=== PATIENT | male | born 2000 | race African-American/Black ===

== ENCOUNTER 2024-09-22 13:07 | Emergency (ER) | payer BC, OTHER, SELFPAY ==
[2024-09-22] VITALS (8 sets, daily range): BP systolic 127–148; BP diastolic 97–109; PULSE 71–80; RESP 14–18; TEMP 35.8–35.9; O2SAT 96–100; BMI 24.2
--- NOTE | 2024-09-22 14:08 | CT_ITS ---
EXAM: CT HEAD WITHOUT INTRAVENOUS CONTRAST CLINICAL INDICATION: head injury w/ loc TECHNIQUE: Multiple axial images were obtained of the head without intravenous contrast. This CT exam was performed using one or more of the following dose reduction techniques: automated exposure control, adjustment of the mA and/or kV according to patient size, and/or use of iterative reconstruction technique. RADIATION DOSE: CTDIvol = 44.99 mGy, DLP = 931.09 mGy-cm COMPARISON: No relevant prior studies available. FINDINGS: BRAIN AND EXTRA-AXIAL SPACES: Unremarkable. No intra- or extra-axial hemorrhage. No evidence of acute infarct. No intracranial mass or mass effect. There is preservation of the campos/white matter interface. Posterior fossa structures are unremarkable. Ventricles are appropriate for age. No hydrocephalus. Basal cisterns are patent. BONES/JOINTS: Unremarkable. No discrete lytic or blastic abnormalities. SINUSES: Unremarkable as visualized. Clear. MASTOID AIR CELLS: Unremarkable. Clear. ORBITS: Visualized globes, extraocular muscles, optic nerves and retrobulbar fat appear unremarkable. CT/Brain/Head without Contrast IMPRESSION: Negative head/brain CT without intravenous contrast. Electronically Signed: Andrzej Baxter MD at 14:51 EDT ,
--- NOTE | 2024-09-22 14:09 | EX.ED.GENINJ ---
HPI History of Present Illness Chief Complaint: Head Injury Detail of Chief Complaint: Head injury playing soccer. Nasal injury and small laceration. 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 He went up to do a header and another player from the other team one of the same time and that player's head hit him in the nose causing a nasal bridge laceration most likely a nasal fracture and a head injury with brief loss of conscious for about 3 seconds. No vomiting. No neck pain. No other complaints. Tetanus Immunization: 5-10 years Prior similar symptoms: No Recent Illness/Hospitalization: No PFSH PFSH Medical History no medical history no medical history Home Medications ?Medication ?Instructions ?Recorded ?Last Taken ?Type NK 09/22/24 Unknown History Allergy/AdvReac Type Severity Reaction Status Date / Time No Known Allergies Allergy Verified 09/22/24 13:08 Surgical History H/O knee surgery Social History Smoking Status: Never smoker ROS ROS ED ROS Narrative Denies recent illness. Constitutional Constitutional ED: Denies chills or fever(s) Eyes Eyes: Denies blurry vision ENT ENT ED: Denies ear pain Cardiovascular Cardiovascular: Denies chest pain Respiratory/Chest Respiratory/Chest: Denies cough or dyspnea Gastrointestinal Gastrointestinal: Denies abdominal pain Genitourinary Genitourinary ED: Denies dysuria or hematuria Musculoskeletal Musculoskeletal: Denies arthralgias or back pain Integumentary Denies abscess Neurologic Neurologic: Reports headache(s) Psychiatric Psychiatric: Denies anxiety Endocrine Endocrinology: Denies cold intolerance Hematologic/Lymphatic Hematologic/Lymphatic: Denies easy bleeding, easy bruising or lymphadenopathy Allergic/Immunologic Allergic/Immunologic ED: Denies mouth swelling, tongue swelling or urticaria EXAM Physical Exam Narrative Exam Narrative: 21-year-old male no acute distress sitting upright in bed. Vital signs stable afebrile. 2 other gentleman present to room. H EENT exam pupils round react light. HR motions are intact. He has a deformity of the bridge of his nose. Tender. Mild swelling. Minor laceration of bridge of his nose at does not need to be repaired. To be cleaned and dressed. Neck nontender. Full range of motion. Lungs clear. Heart regular rate and rhythm no murmur. Chest wall ribs nontender. Abdomen soft nontender. 5 out of 5 traveling storekeeper strength. Dorsi plantarflexion intact. Back nontender. Neurologically he is awake and alert. Answers questions following commands. GCS of 15. Const Vital Signs: 09/22/24 13:08 09/22/24 13:21 09/22/24 13:26 Temperature 96.4 F L Temperature Source Temporal Pulse Rate 71 79 Respiratory Rate 18 14 Respiratory Effort Normal Respiratory Depth Normal Respiratory Pattern Normal Blood Pressure 138/101 H 130/107 H Blood Pressure Mean 113 114 Pulse Ox 97 99 100 Oxygen Delivery Method Room Air Room Air 09/22/24 14:07 09/22/24 15:00 Temperature Temperature Source Pulse Rate 78 80 Respiratory Rate 16 16 Respiratory Effort Respiratory Depth Respiratory Pattern Blood Pressure 148/109 H 127/97 H Blood Pressure Mean 122 107 Pulse Ox 98 99 Oxygen Delivery Method Room Air Positive well nourished and well developed; Negative for obese, cachectic, contractures or unkempt General Appearance ED: well developed and NAD; Negative for unkempt, cachectic or contractures Nutritional Appearance: Negative for cachectic or obese HEENT HEENT Narrative: Nasal bridge fracture with deformity. Small laceration. trauma and tenderness; Negative for atraumatic Nose: septum abnormal Eyes PERRL and EOMs intact bilaterally Neck full ROM General: Negative for tenderness Chest Wall inspection of chest normal and palpation of chest normal Resp normal respiratory effort and clear to auscultation bilaterally Auscultation: Negative for rales, rhonchi or wheezes Cardio regular rhythm, S1 normal heart sound, S2 normal heart sound and no murmurs Jugular Venous Distention: Negative for other Rate: regular rate GI normal to inspection, nondistended, normoactive bowel sounds, non-tender, non-distended and no masses Inspection: Negative for abdominal distention Auscultation: normoactive bowel sounds Palpation: soft; Negative for tender, guarding or rebound tenderness present Back/Spine normal to inspection and no thoracic nor lumbar tenderness General Back: Negative for CVA tenderness Thoracic Spine / Upper Back: Negative for thoracic spinal tenderness Lumbar Spine / Lower Back: Negative for straight leg raise negative bilaterally Extremity normal to inspection and full ROM General Extremety ED: Negative for deformity, edema or tenderness General Extremity: Negative for deformity or edema Neuro oriented x3, CN's II-XII intact bilaterally, moves all extremities, no focal motor deficits and no sensory deficits noted [place] Coma Scale: document GCS findings Spontaneous Obeys Commands Oriented 15 Sensorium / Orientation: alert, oriented to person, oriented to place and oriented to time; Negative for orientation impaired or lethargic Motor Exam: strength 5/5 throughout Psych mental status grossly normal and thought process normal Appearance: Negative for unkempt Attitude: No agitated Mood & Affect: Negative for depressed, anxious or tearful Skin no rashes or lesions noted and No no wounds Skin Narrative: Minor nasal bridge laceration. Very superficial laceration left upper eyelid. Rashes: No rashes noted Trauma: abrasion PROC Procedures Lacerations Left nasal bridge laceration.: Length: 0.5 in Comment: Dermabond. And Steri-Strip. Left upper eyelid laceration repair:: Length: 0.5 in Comment: Dermabond. Steri-Strip. 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 Suspect nasal fracture. Head injury. CT will be obtained. Tylenol for pain. Clean and dress the wounds. Brief exam patient is doing well at 4 PM. Neurologic exam normal. I went over his CAT scan results with him and family. Glued the small laceration on the bridge of his nose and his left eyelid it was about 1 to 2 cm. Steri-Strip both. Good approximation and hemostasis was obtained. History & Record Review Discussion w/independent historian: Patient Radiography Diagnostic Testing: Clinical Impression(s) from Imaging Studies Brain CT 09/22/24 14:08 IMPRESSION: Negative head/brain CT without intravenous contrast. Electronically Signed: Andrzej Baxter MD at 14:51 EDT Reading Location ID and State: [facility] / [place] , Service support , Discharge Plan Triage Chief Complaint: Head Injury ED Provider: Rony Elias Dx/Rx/DC Orders Clinical Impression: Concussion, Closed fracture nasal bone, Eyelid laceration, Laceration of nose Instructions: ED Concussion, ED Facial Contusion, ED Nose Fracture, with X-Ray Prescriptions: No Action NK Primary Care Provider: Care Physician,No Primary Referrals: Gaetano Yost MD [Med Staff - Active Staff] - As Needed Care Physician,No Primary [Primary Care Provider] - Activity Restrictions/Additional Instructions: Ice to your nose and face to decrease pain and swelling. Motrin and Tylenol for pain. Let your broken nose heal. Ice it. If in several months you do not like the way it looks she can follow-up to have it reevaluated to see if you want to have any surgery done. Steri-Strips can come off your nose and left upper eyelid in week to 10 days. Print Language: [place]i Disposition Disposition: Home, Self Care
[2024-09-22] MEDS: Acetaminophen 500 MG Tablet 1000 MG PO ×2 (14:11→19:46)
--- NOTE | 2024-09-22 14:24 | NURSING ---
Patient transported to CT
--- NOTE | 2024-09-22 17:49 | NURSING ---
MESSAGE LEFT WITH PHONE NUMBER ON FILE, DR CARPENTER REQUESTED PT BE CONTACTED AND ASKED TO COME BACK INTO ER.
--- NOTE | 2024-09-22 18:41 | ED.RN ---
per dr guy, we had campus security called so they could locate the pt and have him return to ED for more imaging.
--- NOTE | 2024-09-22 18:48 | CT_ITS ---
EXAM: CT MAXILLOFACIAL WITHOUT INTRAVENOUS CONTRAST CLINICAL INDICATION: Left orbit and facial fractures TECHNIQUE: Helically acquired images were obtained of the face without intravenous contrast. This CT exam was performed using one or more of the following dose reduction techniques: automated exposure control, adjustment of the mA and/or kV according to patient size, and/or use of iterative reconstruction technique. COMPARISON: CT head on the same date. FINDINGS: BONES/JOINTS: Comminuted fractures of the bilateral nasal bones extending across the nasal bridge and medially displaced fracture of the nasal processes of the left maxilla. Associated nondisplaced fracture of the anterior nasal septum. Left orbital floor fracture with displacement of fracture fragments approximately 1.2 cm inferiorly. The lamina papyracea is intact bilaterally. The right bony orbit is intact. The pterygoid plates and zygomatic arches are intact. No mandibular fracture. No discrete lytic or blastic abnormalities. SOFT TISSUES: Nasal soft tissue swelling. Left periorbital soft tissue swelling. No discrete fluid collections. ORBITS: Inferior deviation of the left inferior rectus muscle. The optic nerve sheath complexes appear normal. The ocular globes appear intact. No retrobulbar hematoma. SINUSES: Left maxillary sinus opacity consistent with traumatic blood product. MASTOID AIR CELLS: Normal as visualized. Clear. DENTAL: No significant findings. No periodontal osseous erosion. CT/Sinus/Facial Bone IMPRESSION: 1. Comminuted fractures of the bilateral nasal bones extending across the nasal bridge and medially displaced fracture of the nasal processes of the left maxilla. Associated nondisplaced fracture of the anterior nasal septum. 2. Left orbital floor fracture with displacement of fracture fragments approximately 1.2 cm inferiorly. The fracture extends medially without discrete lamina papyracea defect. 3. Inferior deviation of the left inferior rectus muscle. Correlate for clinical evidence of muscle entrapment. Recommend facial trauma consultation. Electronically Signed: Flo Shin DO at 19:54 EDT ,
== END 2024-09-22 20:38 | disposition home or self-care (01) ==
PROVIDERS: Emergency Provider Emergency Medicine; Visit Provider Emergency Medicine
DX: S02.32XA Fracture of orbital floor, left side, initial encounter for closed fracture (principal); S02.832A Fracture of medial orbital wall, left side, initial encounter for closed fracture; S02.40DA Maxillary fracture, left side, initial encounter for closed fracture; S02.2XXA Fracture of nasal bones, initial encounter for closed fracture; S06.0X1A Concussion with loss of consciousness of 30 minutes or less, initial encounter; S01.21XA Laceration without foreign body of nose, initial encounter; S01.112A Laceration without foreign body of left eyelid and periocular area, initial encounter; W50.0XXA Accidental hit or strike by another person, initial encounter; Y93.66 Activity, soccer
CPT/HCPCS: 12011; 70450; 70486; 99282

== ENCOUNTER 2024-10-08 08:15 | Day surgery (SDC) | payer OTHER, SELFPAY ==
[2024-10-08] VITALS (9 sets, daily range): BP systolic 122–149; BP diastolic 81–99; PULSE 44–70; RESP 16–18; TEMP 36.3–36.4; O2SAT 97–100; BMI 25.1
--- NOTE | 2024-10-08 08:41 | PRE.ANES_ITS ---
ASA Classification* ASA Classification ASA Classification: 2 Assessment & Plan Anesthesia* Anesthesia Assessment Anesthesia Assessment: Discussed sedation and/or anesthesia options, risks, benefits, and alternatives with patient/parents/legal guardian/POA. Questions invited. The patient/parents/legal guardian/POA seems to understand and agrees to proceed with anesthesia plan. Reviewed the physical assessment, medical history, allergy history and patient home medications list prior to surgery/procedure/anesthetic and documented any changes. Performed airway and anesthesia risk assessments. 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 When Was Last Pacemaker Check QUESTION #4 FULL TEXT: You/Your Family Experience fever (hyperthermia) with Anesthesia Last Oral Intake Last Oral intake: Last Oral Intake NPO since Meds taken in AM with sips of water? Meds patient instructed to take am of surgery PONV PONV - software engineer sales: PONV - software engineer sales Female No 10/05/24 15:00 HX of Motion Sickness Yes 10/05/24 15:00 HX of N/V After Surgery No 10/05/24 15:00 Non-Smoker Yes 10/05/24 15:00 Duration of Surgery greater No 10/05/24 15:00 than 60 minutes Number of Risk Factors 2 10/05/24 15:00 PONV Score Moderate Risk 10/05/24 15:00 Height & Weight Height & Weight: Anesthesia: Height & Weight Height 5 ft 9 in 09/22/24 13:08 Respiratory Assessment Respiratory Assessment - software engineer sales: Respiratory Tract Infection Hx - software engineer sales Hx Respiratory Tract Infection No 10/05/24 15:00 STOP Sleep Apnea STOP Sleep Apnea - software engineer sales: STOP Sleep Apnea - software engineer sales Hx Hypertension No 10/05/24 15:00 Hx Sleep Apnea No 10/05/24 15:00 CPAP BIPAP Do you snore loudly (louder No 10/05/24 15:00 than talking or can be heard Do you often feel tired/ No 10/05/24 15:00 fatigued/ sleepy during daytime? Has anyone observed you stop No 10/05/24 15:00 breathing during sleep? STOP Results Negative 10/05/24 15:00 QUESTION #5 FULL TEXT : Do you snore loudly (louder than talking or can be heard through closed doors)? 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 Specify any problems Hx of Preganancy in last 3 N/A 10/05/24 15:00 Months Nurse Filling Out Transfusion DSCHRIBER 10/05/24 15:00 & Questions: Date: 10/05/24 10/05/24 15:00 Time: 15:01 10/05/24 15:00 Patient unable to answer at this time (ie. confused, unrespo /Reproduction History /Reproductive History - software engineer sales: /Reproductive Hx- software engineer sales Hx Now No 10/05/24 15:00 Gestational Age (in weeks): EDC: Hx Hx Para Hx Section SAB No 10/05/24 15:00 Active Medications Active Medications: Current Medications Generic Name Dose Route Start Last Admin Trade Name Freq PRN Reason Stop Dose Admin Lactated Ringer's 1,000 mls @ 15 mls/hr 10/08/24 08:45 IV 10/13/24 22:04 .Q48H [facility] Protocol PFSH Medical History Marijuana use Alcohol use Injury of head and neck Loss of consciousness Heartburn Non-smoker Hx of reduction of orbital fracture Home Medications ?Medication ?Instructions ?Recorded ?Last Taken ?Type acetaminophen 325 mg tablet 650 mg PO Q4H PRN pain 10/05/24 Unknown History (Tylenol) oxycodone 5 mg capsule 5 mg PO Q8H PRN pain 10/05/24 Unknown History tobramycin 0.3 %-dexamethasone 0.1 1 drp ophthalmic (eye) Q6H 10/05/24 Unknown History % eye drops,suspension (TobraDex) Allergy/AdvReac Type Severity Reaction Status Date / Time No Known Allergies Allergy Verified 10/05/24 14:57 Surgical History H/O knee surgery Social History Smoking Status: Never smoker Review of Systems (Anesthesia) ROS Narrative System reviewed and no additional complaints, except as documented.
[2024-10-08] MEDS: Lactated Ringers 1,000 ML 15 ML IV (08:56)
--- NOTE | 2024-10-08 09:47 | PCM.DC.SUM ---
Providers Primary Care Physician: No Primary Care Phys Medications at Discharge Home Medications acetaminophen 325 mg tablet (Tylenol) 650 mg PO Q4H PRN pain 10/05/24 oxycodone 5 mg capsule 5 mg PO Q8H PRN pain 10/05/24 tobramycin 0.3 %-dexamethasone 0.1 % eye drops,suspension (TobraDex) 1 drp ophthalmic (eye) Q6H 10/05/24 Weight / BMI Weight Weight: 77.111 kg Body Mass Index (BMI) 25.1 D/C Instructions Discharge Diet: No restrictions Discharge Activity: Return to Normal Activity Additional Activity Instructions: No contact sports without a mask for 8 weeks Additional Instructions: Let the splint fall off on its own. When: as needed Meaningful Use Info Meaningful Use Meaningful Use Diagnoses (Choose all that apply): None applicable Ischemic Stroke Statin Dosing Therapy Reference: STATIN DOSE THERAPY REFERENCE: * Patients > 75 years receive moderate or high dose statin therapy. * Patients 75 years or YOUNGER should receive HIGH intensity statin dose unless contraindicated. You will be required to document reason for non-treatment if statin daily dose does not meet guidelines. HIGH DOSE STATIN THERAPY DAILY Atorvastatin > than or = to 40 mg Rosuvastatin > than or = to 20 mg Amlodipine + Atorvastatin > than or = to 2.5/40 mg Ezetimibe + Simvastatin 10/80 mg Simvastatin 80mg Discharge Plan Admission Attending Provider: Gaetano Yost Primary Care Provider: Care Physician,Deepika Primary Instructions Print Language: [place] Citizen Discharge Orders/Prescriptions Prescriptions: No Action tobramycin-dexamethasone [TobraDex] 0.3-0.1 % drops,suspension 1 drp ophthalmic (eye) Q6H oxycodone 5 mg capsule 5 mg PO Q8H PRN (Reason: pain) acetaminophen [Tylenol] 325 mg tablet 650 mg PO Q4H PRN (Reason: pain) Referrals / Follow Up: Care Physician,No Primary [Primary Care Provider] - Disposition Disposition (needs filled in before D/C Order can be placed): Home, Self Care
--- NOTE | 2024-10-08 09:49 | PCM.OPRPT ---
Operative Report (Standard) Operative Information Surgery/Procedure Performed: closed reduction nasal fracture Surgeon: Gaetano Yost Date of Procedure: 10/08/24 Procedure Start Time: 10:01 Procedure Stop Time: 10:10 Pre-Operative Diagnosis: nasal fracture Post-Operative Diagnosis: same Select all DRAINS/GRAFTS/IMPLANTS that apply: None Type of Anesthesia: General Estimated Blood Loss: minimal Specimen collected: No Description of surgery: The patient was taken to the operating room on 10/08/2024. He was placed in the supine position on the operating room table. He was given sufficient general anesthesia. The head of bed was elevated 30 degrees. The nose was decongested with Afrin pledgets. The pledgets were then removed. A joker elevator was was inserted into the patient's left nasal cavity and the nasal bones were outfractured laterally. I then placed pressure on the right nasal bones until there was absolute midline reduction. Once this was accomplished, hemostasis was achieved with Afrin pledgets. Steri-Strips were applied to the nose. A [place] nasal splint was then applied. The pledgets were removed. Hemostasis was ensured. The patient was then awoken and brought to the recovery room in stable condition. Blood loss minimal, replacement none. Sponge, needle, and instrument count were correct at the end of the procedure. 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
--- NOTE | 2024-10-08 10:34 | PCM.POST.ANE ---
Anesthesia: Postop Eval I Current Vital Signs Temperature: 97.4 F Pulse Rate: 70 Blood Pressure: 146/99 Respiratory Rate: 18 Pulse Ox: 97 Oxygen Delivery Method: Room Air Assessment Airway patent: Yes Spontaneous unlabored respirations: Yes Mental status: Awake and Calm nausea: No Vomiting: No Anesthesia Complication: No Fluid Hydration Crystalloid volume administer (ml): 300 Total IV fluid infused: 300 Progress Note Anesthesia document: Postop Eval 1 completed: Yes
--- NOTE | 2024-10-08 11:12 | POSTOPAN2_ITS ---
Anesthesia Postop Eval I Sum Postop Eval Completion status Anesthesia document: Postop Eval 1 completed: Yes Anesthesia Postop Eval I Summary Anesthesia Postop Eval I Summary: Anesthesia Postop Eval I: Assessment Summary Airway patent Yes 10/08/24 10:34 CASH [email or web address] Spontaneous unlabored Yes 10/08/24 10:34 CASH [email or web address].MDOT respirations Mental status Awake,Calm 10/08/24 10:34 CASH [email or web address].MDOT nausea No 10/08/24 10:34 CASH TELLER.MDOT Vomiting No 10/08/24 10:34 CASH [email or web address].MDOT Anesthesia Postop Eval I: Fluid Summary Crystalloid volume administer 300 10/08/24 10:34 CASH [email or web address].MDOT (ml) Colloids volume administered ( ml) Blood Product volume administered (ml) Total IV fluid infused 300 10/08/24 10:34 CASH [email or web address].MDOT Anesthesia Postop Eval I: Summary Notes Anesthesia Complication No 10/08/24 10:34 CASH [email or web address].MDOT Anesthesia Complication Comment: Post-operative progress note Anesthesia: Postop Eval II Evaluation Mental status: Awake Pain Level: 0 nausea: No Vomiting: No
--- NOTE | 2024-10-08 11:12 | PCM.POSTANE2 ---
Anesthesia Postop Eval I Sum Postop Eval Completion status Anesthesia document: Postop Eval 1 completed: Yes Anesthesia Postop Eval I Summary Anesthesia Postop Eval I Summary: Anesthesia Postop Eval I: Assessment Summary Airway patent Yes 10/08/24 10:34 PROGRAM SERVICES PLANNER.MDOT Spontaneous unlabored Yes 10/08/24 10:34 PROGRAM SERVICES PLANNER.MDOT respirations Mental status Awake,Calm 10/08/24 10:34 PROGRAM SERVICES PLANNER.MDOT nausea No 10/08/24 10:34 PROGRAM SERVICES PLANNER.MDOT Vomiting No 10/08/24 10:34 PROGRAM SERVICES PLANNER.MDOT Anesthesia Postop Eval I: Fluid Summary Crystalloid volume administer 300 10/08/24 10:34 PROGRAM SERVICES PLANNER.MDOT (ml) Colloids volume administered ( ml) Blood Product volume administered (ml) Total IV fluid infused 300 10/08/24 10:34 PROGRAM SERVICES PLANNER.MDOT Anesthesia Postop Eval I: Summary Notes Anesthesia Complication No 10/08/24 10:34 PROGRAM SERVICES PLANNER.MDOT Anesthesia Complication Comment: Post-operative progress note Anesthesia: Postop Eval II Evaluation Mental status: Awake Pain Level: 0 nausea: No Vomiting: No
[2024-10-08] MEDS: Acetaminophen 325 MG Tablet 650 MG PO (11:54)
== END 2024-10-08 12:09 | disposition home or self-care (01) ==
LOC: SDC 08:33 → AC 08:37
PROVIDERS: Referring Provider Otolaryngology; Visit Provider Otolaryngology
PROC: 0NSBXZZ Reposition Nasal Bone, External Approach (ICD-10-PCS; CPT 21320; principal; 2024-10-08 09:40)
DX: S02.2XXA Fracture of nasal bones, initial encounter for closed fracture (principal); S02.32XS Fracture of orbital floor, left side, sequela; X58.XXXA Exposure to other specified factors, initial encounter; Y93.79 Activity, other specified sports and athletics
CPT/HCPCS: 21320; 00160; J7120; J2405